=== PATIENT | female | born 1995 | race Caucasian/White ===

== ENCOUNTER 2021-09-10 04:41 | Emergency (ER) | payer MEDICAID ==
[~2021-09-10] VITALS: Ht 162.6 cm; Wt 70.4 kg
[2021-09-10] MEDS ORDERED: LIDOcaine 1% w/epiNEPHrine 1:200,000 30ml vial SQ ONE (05:40)
--- NOTE | 2021-09-10 05:52 | NUR ---
0449 PT TO BED 5 WITH CONTRACTIONS 2 MIN APART. PT WAS ATTEMPTING TO PUSH W/ CONTRACTIONS. ATTEMPTED TO TRANSFER TO [facility] FOR OB CARE BUT TRANSFER WAS DENIED BY [facility]. MD AT BEDSIDE PERFORMED VAGINAL ASSESSMENT. PT DIALTED AND HEAD WAS FELT AT FINGERTIPS. INITIATED IV FLUIDS AND 3 LTR O2 NC. [facility]. PT PUSHED MULTIPLE TIMES WITH A DELIVERY TIME OF 0524. [facility] DELIVERED APPROX 0540, [facility] INTACT. @ 1 MIN =8, @ 5 MIN 9. RT AT BEDSIDE.
--- NOTE | 2021-09-10 06:12 | NUR ---
PT A&O X4 AWAKE AND TALKING. VITALS WNL. FUNDAL MASSAGE Q 10 MIN AND MONITORING BLEEDING
--- NOTE | 2021-09-10 07:21 | NUR ---
SPOKEN TO [facility] TO GIVE REPORT TO LABOR AND DELIVERY NURSE AT [id number].INFORMED THAT PT IS DRUG USER,NO PRENATTAL CARE,NOT AWARE OF HER MONTH OF ,PT STATED IN BTW 7-8 MONTH.PT HAD NORMAL VAGINAL DELIVERY ,PT HAD FENTNYL ON BOARD BEFORE COMING TO HOSPITAL ,PT RECIVED 2L OF IV FLUID AND PT BP WAS LOW DURING THE DELIVERY THEN BUMP UP TO NORMAL RANGE IN BTW 120-133 SYSTOLIC.PT IS ALERT ORIENTED X 4 ,URINATED 1000 ML AT 0655 .SCANT AMOUNT OF BLD ON PAD ,NOT COMPLETELY SATURATED ,UTERUS IS CONTRACTED AND NO HEMMORRAHGE NOTED.INFORMED NO PITOCIN OR METHARGIN GIVEN DURING OR AFTER THE DELIVERY PROCEDURE.
[2021-09-10 08:03] VITALS: BP 133/92
== END 2021-09-10 07:25 | disposition short-term general hospital (02) ==
LOC: ER 04:43
DX: O62.3 Precipitate labor (principal); Z20.822 Contact with and (suspected) exposure to COVID-19; Z3A.49 Greater than 42 weeks gestation of pregnancy
CPT/HCPCS: 59409; 87635; 99291; 99292; C9803; 99285